=== PATIENT | female | born 1975 | race Caucasian/White ===

== ENCOUNTER 2019-09-16 07:54 | Emergency (ER) | payer OTHER ==
[~2019-09-16] VITALS: Ht 162.6 cm; Wt 81.2 kg
[2019-09-16 08:20] VITALS: BP 106/54; Ht 162.6 cm; Wt 81.2 kg
== END 2019-09-16 10:37 | disposition home or self-care (01) ==
LOC: ED 07:54
DX: S93.401A Sprain of unspecified ligament of right ankle, initial encounter (principal); X50.1XXA Overexertion from prolonged static or awkward postures, initial encounter; Y93.89 Activity, other specified; Y92.89 Other specified places as the place of occurrence of the external cause; Y99.8 Other external cause status